=== PATIENT | female | born 1990 | race Two or more races ===

== ENCOUNTER 2019-10-04 17:05 | Observation (INO) | payer BC ==
[~2019-10-04] VITALS: Ht 162.6 cm; Wt 111.1 kg
[2019-10-04 18:21] LABS: BILIRUBIN,URINE NEGATIVE (NEGATIVE); BLOOD, URINE 1+ (NEGATIVE); CLARITY/URINE CLEAR (CLEAR); COLOR,URINE YELLOW (YELLOW); GLUCOSE,URINE NEGATIVE (NEGATIVE); KETONES,URINE 1+ (NEGATIVE); LEUKOCYTE ESTERASE ,URINE NEGATIVE (NEGATIVE); NITRITE, URINE NEGATIVE (NEGATIVE); PH,URINE 6.5 (5.0-8.0); PROTEIN URINE NEGATIVE (NEGATIVE); UROBILINOGEN,URINE 0.2 (0.2-1.0)
[2019-10-04 19:12] LABS: BACTERIA,URINE FEW /HPF (None Seen); MUCUS,URINE 1+ /LPF (None Seen)
[2019-10-04] MEDS ORDERED: cefTRIAXone 1 GM IVPB PREMIX 50 ML IV ONE (20:00)
[2019-10-04] MEDS ORDERED: LIDOCAINE PF 1%, 20 MG/2 ML AMP INJ ONE (20:30)
[2019-10-04] MEDS ORDERED: cefTRIAXone 1 GM VIAL ONE (21:21)
[2019-10-04] MEDS ORDERED: cefTRIAXone 1 GM VIAL IM ONE (21:30)
== END 2019-10-04 21:41 | disposition home or self-care (01) ==
LOC: SPU 17:05
PROVIDERS: ADMIT Obstetrics & Gynecology; ATTEND Obstetrics & Gynecology
DX: O42.912 Preterm premature rupture of membranes, unspecified as to length of time between rupture and onset of labor, second trimester (principal); Z3A.24 24 weeks gestation of pregnancy
CPT/HCPCS: 76805; 81000; 87086; 96372; G0378; J0696; J2001